=== PATIENT | male | born 1960 | race African-American/Black ===

== ENCOUNTER 2020-03-11 10:30 | Inpatient (IN) | payer BC ==
[2020-03-08 15:02] VITALS: BMI 33.4
[2020-03-11] MEDS ORDERED: BUPIVACAINE HCL/PF 0.5% (5MG/ML) 10 ML VIAL ONE (12:02)
[2020-03-11] MEDS ORDERED: MIDAZOLAM HCL 2 MG/2 ML SINGLE DOSE VIAL ONE ×2 (12:03→13:53)
[2020-03-11] MEDS ORDERED: BUPIVACAINE LIPOSOME/PF (EXPAREL) 266 MG/20 ML VIAL ONE (13:53)
[2020-03-11] MEDS ORDERED: SODIUM CHLORIDE 0.9% P/F 10 ML VIAL IJ ONE (13:53)
[2020-03-11] MEDS ORDERED: SUCCINYLCHOLINE CHLORIDE 200 MG/10 ML SYRINGE ONE (14:34)
[2020-03-11] MEDS ORDERED: EPHEDRINE SULFATE/0.9% NACL/PF 50 MG/10 ML SYRINGE NR ONE (14:50)
[2020-03-11] MEDS ORDERED: ceFAZolin SODIUM 1 GM VIAL ONE (14:51)
[2020-03-11] MEDS ORDERED: ONDANSETRON 4 MG/2 ML VIAL ONE (14:51)
[2020-03-11] MEDS ORDERED: TRANEXAMIC ACID 1000 MG/10 ML VIAL ONE ×2 (14:51→17:14)
[2020-03-11] MEDS ORDERED: VANCOMYCIN 1,000 MG VIAL (RESTRICTED TO ID ONLY) ONE (15:21)
[2020-03-11] MEDS ORDERED: BUPIVICAINE 0.25%/MORPH PF/KETOROLAC - 51ML DISP.SYRINGE IA ONE ×2 (16:03→17:21)
[2020-03-11] MEDS ORDERED: VANCOMYCIN 1,000 MG VIAL (RESTRICTED TO ID ONLY) IVPB ONE (17:24)
[2020-03-11] MEDS ORDERED: MAG HYDROX/AL HYDROX/SIMETH 30 ML UNIT-DOSE CUP PO PRN (18:00)
[2020-03-11] MEDS ORDERED: LACTATED RINGERS SOLUTION 1,000 ML IV SCH (18:00)
[2020-03-11] MEDS ORDERED: ONDANSETRON 4 MG/2 ML VIAL IVPUSH PRN (18:00)
[2020-03-11] MEDS ORDERED: PROMETHAZINE HCL 25 MG/1 ML VIAL IVPUSH PRN (18:32)
[2020-03-11] MEDS ORDERED: oxyCODONE HCL 5 MG TABLET PO PRN (18:32)
[2020-03-11] MEDS ORDERED: ACETAMINOPHEN 325 MG TABLET (FP) PO SCH (18:45)
[2020-03-11] MEDS ORDERED: ACETAMINOPHEN 325 MG TABLET (FP) ONE (18:59)
[2020-03-11] MEDS: GABAPENTIN 300 MG CAPSULE PO SCH (21:18)
[2020-03-11] MEDS: oxyCODONE HCL 5 MG TABLET PO PRN (21:19)
[2020-03-11] MEDS: oxyCODONE HCL 10 MG SUSTAINED ACTING TABLET PO SCH (21:19)
[2020-03-11] MEDS: SENNOSIDES/DOCUSATE COMBO (SENNA PLUS) TABLET (UD) PO SCH (21:24)
[2020-03-11] MEDS: ATORVASTATIN CA 20 MG TABLET (FP) PO SCH (22:05)
[2020-03-11] MEDS: CEFAZOLIN 2 GM/D5W 2 GM/50 ML ML IVPB SCH (23:01)
[2020-03-12] MEDS: ACETAMINOPHEN 325 MG TABLET (FP) PO SCH ×4 (00:07→18:20)
[2020-03-12] MEDS: oxyCODONE HCL 5 MG TABLET PO PRN ×6 (00:07→18:19)
[2020-03-12] MEDS: CEFAZOLIN 2 GM/D5W 2 GM/50 ML ML IVPB SCH ×2 (06:06→16:03)
[2020-03-12 08:18] LABS: CALCIUM 8.7 mg/dl (8.5-10); CREATININE 0.8 mg/dl (0.55-1.3); POTASSIUM 3.7 mmol/L (3.5-5.1)
[2020-03-12 09:30] LABS: HEMATOCRIT 39.6 % (35.4-49); MCH 31.1 pg (25.7-33.7); MCHC 32.8 g/dl (32.0-35.9); MEAN CELL VOLUME 94.6 fl (80-96); MEAN PLT VOLUME 9.4 fl (7.5-11.1); PLATELET COUNT 195 K/MM3 (134-434); RBC 4.18 M/mm3 (4.00-5.60); RDW 12.9 % (11.9-15.9); WHITE BLOOD COUNT 8.7 K/mm3 (4.0-10.0)
[2020-03-12] MEDS: MULTIVITAMINS (DAILY MVI) TABLET (FP) PO SCH (09:49)
[2020-03-12] MEDS: ASPIRIN 325 MG TABLET PO SCH ×2 (09:49→21:17)
[2020-03-12] MEDS: PANTOPRAZOLE 40 MG TABLET PO SCH (09:50)
[2020-03-12] MEDS: GABAPENTIN 300 MG CAPSULE PO SCH ×2 (09:50→21:17)
[2020-03-12] MEDS: SENNOSIDES/DOCUSATE COMBO (SENNA PLUS) TABLET (UD) PO SCH ×2 (09:50→21:17)
[2020-03-12] MEDS: oxyCODONE HCL 10 MG SUSTAINED ACTING TABLET PO SCH ×2 (09:50→21:16)
[2020-03-12] MEDS: ATORVASTATIN CA 20 MG TABLET (FP) PO SCH (21:16)
[2020-03-12] MEDS: HYDROCHLOROTHIAZIDE 25 MG TABLET (FP) PO SCH (22:40)
[2020-03-13] MEDS: ACETAMINOPHEN 325 MG TABLET (FP) PO SCH ×3 (00:27→12:06)
[2020-03-13] MEDS: oxyCODONE HCL 5 MG TABLET PO PRN ×3 (00:37→10:30)
[2020-03-13 06:58] VITALS: BP 121/81; PULSE 93; TEMP 98.2
[2020-03-13 08:20] LABS: HEMATOCRIT 37.6 % (35.4-49); HEMOGLOBIN 12.4 GM/dl (11.7-16.9); MCH 31.4 pg (25.7-33.7); MCHC 33.1 g/dl (32.0-35.9); MEAN CELL VOLUME 94.9 fl (80-96); MEAN PLT VOLUME 9.4 fl (7.5-11.1); PLATELET COUNT 206 K/MM3 (134-434); RBC 3.96 M/mm3 (4.00-5.60); RDW 11.9 % (11.9-15.9); WHITE BLOOD COUNT 11.2 K/mm3 (4.0-10.8)
[2020-03-13 08:23] LABS: CALCIUM 8.8 mg/dl (8.5-10); CREATININE 0.8 mg/dl (0.55-1.3); MAGNESIUM 1.8 mg/dL (1.8-2.4); POTASSIUM 3.5 mmol/L (3.5-5.1)
[2020-03-13] MEDS: PANTOPRAZOLE 40 MG TABLET PO SCH (10:00)
[2020-03-13] MEDS: oxyCODONE HCL 10 MG SUSTAINED ACTING TABLET PO SCH (10:05)
[2020-03-13] MEDS: SENNOSIDES/DOCUSATE COMBO (SENNA PLUS) TABLET (UD) PO SCH (10:29)
[2020-03-13] MEDS: GABAPENTIN 300 MG CAPSULE PO SCH (10:30)
[2020-03-13] MEDS: HYDROCHLOROTHIAZIDE 25 MG TABLET (FP) PO SCH (10:30)
[2020-03-13] MEDS: MULTIVITAMINS (DAILY MVI) TABLET (FP) PO SCH (10:30)
[2020-03-13] MEDS: ASPIRIN 325 MG TABLET PO SCH (10:30)
== END 2020-03-13 15:47 | disposition home health service (06) | DRG 470 ==
LOC: FM/S 11:25
PROVIDERS: ADMIT Orthopaedic Surgery Sports Medicine; ATTEND Registered Nurse Emergency
PROC: 0SRC0J9 Replacement of Right Knee Joint with Synthetic Substitute, Cemented, Open Approach (ICD-10-PCS; principal; 2020-03-11 15:28)
DX: M17.11 Unilateral primary osteoarthritis, right knee (principal); I10 Essential (primary) hypertension; E78.5 Hyperlipidemia, unspecified
CPT/HCPCS: 36415; 73560-TC-RT-FY; 80048; 83735; 85027; 88305-TC; 88311-TC; 94760; 97010-GP; 97116-GP; 97163-GP

== ENCOUNTER 2021-08-25 06:06 | Day surgery (SDC) | payer BC ==
[2021-08-15 12:18] VITALS: BMI 32.4
[2021-08-25] MEDS ORDERED: BUPIVACAINE HCL 100 ML ONE (07:14)
[2021-08-25] MEDS ORDERED: ceFAZolin SODIUM 1 GM VIAL ONE (07:18)
[2021-08-25] MEDS ORDERED: VANCOMYCIN 1,000 MG VIAL (RESTRICTED TO ID ONLY) ONE (07:18)
[2021-08-25] MEDS ORDERED: PROPOFOL 20 ML ONE (07:18)
[2021-08-25] MEDS ORDERED: MIDAZOLAM HCL 2 MG/2 ML SINGLE DOSE VIAL ONE (07:18)
[2021-08-25] MEDS ORDERED: DEXAMETHASONE SOD PHOSPHATE 4 MG/1 ML VIAL ONE (07:19)
[2021-08-25] MEDS ORDERED: ONDANSETRON 4 MG/2 ML VIAL ONE ×2 (07:19→09:48)
[2021-08-25] MEDS ORDERED: KETOROLAC TROMETHAMINE 30 MG/1 ML VIAL ONE (07:19)
[2021-08-25] MEDS ORDERED: ONDANSETRON 4 MG/2 ML VIAL IVPUSH PRN (08:52)
[2021-08-25] MEDS ORDERED: oxyCODONE HCL 5 MG TABLET PO PRN (08:52)
[2021-08-25] MEDS ORDERED: LACTATED RINGERS SOLUTION 1,000 ML IV SCH (09:00)
[2021-08-25] MEDS ORDERED: FENTANYL CITRATE/PF 50 MCG/ML VIAL ONE ×3 (09:08→09:48)
[2021-08-25 10:22] VITALS: TEMP 97.8
[2021-08-25 11:23] VITALS: BP 130/78; PULSE 68
== END 2021-08-25 11:23 | disposition home or self-care (01) ==
LOC: FASU 06:06
PROVIDERS: ATTEND Orthopaedic Surgery Sports Medicine
PROC: 0SBC4ZZ Excision of Right Knee Joint, Percutaneous Endoscopic Approach (ICD-10-PCS; 2021-08-25)
PROC: 0SNC4ZZ Release Right Knee Joint, Percutaneous Endoscopic Approach (ICD-10-PCS; principal; 2021-08-25 07:50)
DX: M24.661 Ankylosis, right knee (principal); M25.561 Pain in right knee
CPT/HCPCS: 94760